=== PATIENT | female | born 1950 | race Hispanic/Latino ===

== ENCOUNTER 2022-09-03 17:58 | Emergency (ER) | payer OTHER ==
[~2022-09-03] VITALS: Ht 162.6 cm; Wt 95.3 kg
[~2022-09-03 17:58] MED LIST: LOSA100T58 PO; METF-444 PO; MONT-39 PO; OXYB10TA30 PO; ROSU40 PO
[2022-09-03 18:51] LABS: BASOPHILS % (AUTO) 0.2 % (0.0-5.0); EOSINOPHILS % (AUTO) 0.2 % (0.0-8.0); HEMATOCRIT 41.8 % (36-48); LYMPHOCYTES % (AUTO) 8.3 % (21.0-51.0); MEAN CORPUSCULAR HEMOGLOBIN 29.1 pg (27.0-33.0); NEUTROPHILS % (AUTO) 83.1 % (40.0-77.0); PLATELET COUNT (AUTO) 193 K/uL (130-400); RED BLOOD CELL COUNT(AUTO) 4.75 MIL/uL (4.00-5.50); RED CELL DISTRIBUTION WIDTH 13.4 % (11.0-15.5); WHITE BLOOD COUNT (AUTO) 10.6 K/uL (4.8-10.8)
[2022-09-03 19:00] LABS: POTASSIUM 3.9 mmol/L (3.5-5.1)
[2022-09-03 19:05] LABS: ALBUMIN 3.7 g/dL (3.5-5.0); TOTAL PROTEIN, SERUM 7.6 g/dL (6.0-8.3)
[2022-09-03] MEDS ORDERED: ALBU90AE2 IH (20:22)
[2022-09-03] MEDS ORDERED: NIRM1TAB PO (20:22)
[2022-09-03] MEDS ORDERED: ONDA-104 PO (20:22)
[2022-09-03] MEDS ORDERED: IBUP-1493 PO (20:22)
[2022-09-03 20:38] VITALS: BP 142/72
== END 2022-09-03 20:59 | disposition home or self-care (01) ==
LOC: EDH 17:58
DX: U07.1 COVID-19 (principal); E11.9 Type 2 diabetes mellitus without complications; E78.00 Pure hypercholesterolemia, unspecified; I10 Essential (primary) hypertension; Z90.49 Acquired absence of other specified parts of digestive tract; Z79.899 Other long term (current) drug therapy; Z88.5 Allergy status to narcotic agent
CPT/HCPCS: 99285; 71045; 87635; 80053; 85025; 87804 ×2; 36415; 93005; C9803

== ENCOUNTER 2023-07-06 21:41 | Emergency (ER) | payer OTHER ==
[~2023-07-06] VITALS: Ht 162.6 cm; Wt 100.7 kg
[~2023-07-06 21:41] MED LIST changes: +ALBU90AE2 IH; +IBUP-1493 PO; -LOSA100T58 PO; +LOSA100T59 PO; +NIRM1TAB PO; +ONDA-104 PO
[2023-07-06 22:08] VITALS: BP 155/89; PULSE 80; RESP 17; O2SAT 98
[2023-07-06 22:28] LABS: APPEARANCE,URINE CLEAR (CLEAR); BILIRUBIN,URINE NEGATIVE (NEGATIVE); COLOR,URINE YELLOW (YELLOW); GLUCOSE, URINE (UA) 50 mg/dL (NEGATIVE); KETONES,URINE NEGATIVE (NEGATIVE); LEUKOCYTE ESTERASE ,URINE 75 Leu/uL (NEGATIVE); NITRATE,URINE NEGATIVE (NEGATIVE); OCCULT BLOOD,URINE NEGATIVE (NEGATIVE); PH,URINE 6.5 (5.0-8.0); PROTEIN,URINE NEGATIVE (NEGATIVE); UROBILINOGEN,URINE 0.2 mg/dL (0.2-1.0)
[2023-07-06 22:32] LABS: ADD UA MICROSCOPIC YES
[2023-07-06 22:34] LABS: RBC,URINE 0-1 /HPF (0-1); SQUAMOUS EPITHELIAL CELL,UR RARE /HPF (0-2); WBC,URINE 26-50 /HPF (0-1)
[2023-07-06] MEDS ORDERED: CEFUROXIME AXETIL 250 MG TABLET PO STA (22:43)
[2023-07-06] MEDS ORDERED: PHEN-847 PO (22:49)
[2023-07-06] MEDS ORDERED: CEFU500T67 PO (22:49)
[2023-07-06] MEDS ORDERED: PHENAZOPYRIDINE HCL 200 MG TABLET PO ONE (23:00)
== END 2023-07-06 23:14 | disposition home or self-care (01) ==
LOC: EDH 21:41
DX: N39.0 Urinary tract infection, site not specified (principal); M19.90 Unspecified osteoarthritis, unspecified site; E11.9 Type 2 diabetes mellitus without complications; E78.00 Pure hypercholesterolemia, unspecified; I10 Essential (primary) hypertension; Z79.1 Long term (current) use of non-steroidal anti-inflammatories (NSAID); Z79.84 Long term (current) use of oral hypoglycemic drugs; Z79.899 Other long term (current) drug therapy; Z88.5 Allergy status to narcotic agent
CPT/HCPCS: 81001; 87088